=== PATIENT | male | born 1950 | race Caucasian/White ===

== ENCOUNTER 2020-02-20 10:23 | Outpatient (CLI) | payer BC, SELFPAY ==
[2020-02-20 11:12] LABS: Alanine Aminotransferase 35 U/L (4-50); Albumin Level 4.5 g/dL (3.5-5.1); Alkaline Phosphatase 113 U/L (38-126); Anion Gap 8 mmol/L (8-16); Aspartate Amino Transferase 37 U/L (17-59); Bilirubin,Total 0.9 mg/dL (0.2-1.3); Blood Urea Nitrogen 21 mg/dL (9-20); Calcium 9.4 mg/dL (8.4-10.2); Carbon Dioxide 29 mmol/L (22-30); Chloride 100 mmol/L (98-107); Cholesterol 184 mg/dL (0-200); Creatine Kinase 168 U/L (55-170); Estimated Glomerular Filt Rate > 60; Glucose 103 mg/dL (75-110); HDL Direct 36 mg/dL; Potassium 4.3 mmol/L (3.4-5.0); Sodium 137 mmol/L (137-145); Triglycerides 196 mg/dL (<150)
[2020-02-20 11:24] LABS: LDL Cholesterol Direct 120 mg/dL
== END 2020-02-20 10:24 | disposition home or self-care (01) ==
PROVIDERS: PCP Internal Medicine; Visit Provider Internal Medicine
DX: E78.5 Hyperlipidemia, unspecified (principal)
CPT/HCPCS: 36415; 80053; 80061; 82550

== ENCOUNTER 2020-03-03 22:39 | Emergency (ER) | payer BC, SELFPAY ==
--- NOTE | ~2020-03-03 | XR_ITS ---
EXAMINATION: XR chest 1V portable EXAM DATE: 03/03/2020 23:50 INDICATION: weakness, FALL, HX HTN. TECHNIQUE: Portable AP frontal chest x-ray was obtained. There is no prior study for comparison. FINDINGS: The lungs are clear. There are no pleural effusions. Cardiac silhouette is prominent but magnified on this AP technique. There is no pneumothorax suspected. The bones and soft tissues are unremarkable. IMPRESSION: No acute cardiopulmonary findings. Reviewed, dictated and finalized at location A. [employer] [employer]
[2020-03-03 22:41] VITALS: BP 138/95; PULSE 108; RESP 15; TEMP 36.5; O2SAT 93
--- NOTE | 2020-03-03 22:55 | ECG_ITS ---
Measurements Intervals [place] Rate: 108 P: 46 KS: 183 QRS: 20 QRSD: 119 T: 0 QT: 332 QTc: 445 Interpretive Statements SINUS TACHYCARDIA POSSIBLE LEFT ATRIAL ENLARGEMENT LOW QRS VOLTAGE IN PRECORDIAL LEADS INCOMPLETE RIGHT BUNDLE BRANCH BLOCK BORDERLINE T WAVE ABNORMALITY- INFERIOR LEADS ABNORMAL ECG Electronically Signed On 03-04-2020 7:18:49 RECLAIMER by Rob Jones D.O.
[2020-03-03 22:59] VITALS: BP 137/75; PULSE 103
[2020-03-03 23:13] VITALS: BP 123/85; PULSE 106
[2020-03-03 23:16] VITALS: BP 140/89; PULSE 112
[2020-03-03] MEDS: SODIUM CHLORIDE 0.9% IV 1,000 ML 999 ML IV CONT (23:21)
--- NOTE | 2020-03-03 23:22 | PC.NURSE ---
pt states he isnt able to urinate at this time, refused straight cath. IV fluids started on pt at this time. urinal placed at bedside. instructed to use call light to let rn know hes giving urine sample.
[2020-03-03 23:27] LABS: Basophils Percent Auto 0.3 % (0.2-1.2); Eosinophils Percent Auto 0.1 % (0-4.4); Hematocrit 44.4 % (42.0-52.0); Hemoglobin 15.2 g/dL (14.0-18.0); Immature Granulocyte Absolute 0.06 K/mm3 (0.00-0.031); Immature Granulocyte Percent A 0.4 % (0-0.5); Lymphocytes Absolute Auto 0.66 K/mm3 (0.9-3.2); Lymphocytes Percent Auto 4.2 % (18.3-44.2); Mean Corpuscular HGB Conc 34.2 g/dl (32-36); Mean Corpuscular Hemoglobin 30.4 pg (26-34); Mean Corpuscular Volume 88.8 fl (80-100); Mean Platelet Volume 9.4 fl (7.4-10.4); Monocytes Absolute Auto 0.8 K/mm3 (0.1-0.6); Neutrophils Absolute Auto 14.3 K/mm3 (1.3-6.7); Platelet Count Result 142 k/mm3 (150-375); Red Cell Distribution Width 13.2 % (11.5-14.5); White Blood Count 15.9 K/mm3 (4.5-10.0)
[2020-03-03 23:41] LABS: Alanine Aminotransferase 22 U/L (4-50); Albumin Level 4.1 g/dL (3.5-5.1); Alkaline Phosphatase 84 U/L (38-126); Anion Gap 8 mmol/L (8-16); Aspartate Amino Transferase 29 U/L (17-59); Bilirubin,Total 0.7 mg/dL (0.2-1.3); Blood Urea Nitrogen 23 mg/dL (9-20); Carbon Dioxide 26 mmol/L (22-30); Chloride 97 mmol/L (98-107); Estimated Glomerular Filt Rate 55; Glucose 147 mg/dL (75-110); Magnesium 1.9 mg/dL (1.6-2.3); Potassium 3.6 mmol/L (3.4-5.0); Sodium 131 mmol/L (137-145)
[2020-03-03 23:42] LABS: Lactic Acid Reflex 1.4 mmol/L (0.7-2.1)
[2020-03-03 23:52] LABS: Troponin I 0.014 ng/mL (0.000-0.034)
[2020-03-04 00:30] VITALS: BP 142/99; PULSE 98; RESP 18; O2SAT 97
[2020-03-04 00:47] LABS: Add Urine Microscopic? YES; Appearance Urine Clear (Clear); Bacteria Urine Trace /hpf; Bilirubin Urine Negative (Negative); Blood Urine 1+ (Negative); Color Urine Yellow (Yellow); Glucose Urine UA Negative (Negative); Ketones Urine Negative (Negative); Leukocyte Esterase Ur Negative LEU/UL (Negative); Mucus Urine Rare /lpf; Nitrate Urine Negative (Negative); Protein Urine 1+ mg/dL (Negative); RBC Urine 0-2 /hpf (0-2); Specific Grav Ur 1.018 (1.001-1.035); Urobilinogen Urine Negative mg/dL (<2.0); WBC Urine 0-3 /hpf
--- NOTE | 2020-03-04 01:03 | ED.GENADULT ---
HPI - General Adult General Chief complaint: Altered Mental Status Stated complaint: altered post fall Time Seen by Provider: 03/03/20 22:54 History of Present Illness HPI narrative: Patient is a 69-year-old gentleman who presents the emergency department with chief complaint of fall and altered mental status. Per the patient's the patient fell at home and then was somewhat confused. She had noticed that he has been running a fever all day the low 100s the noticed that his eyes can ever glassy and he was initially confused. The patient subsequently is feeling much better and actually is back to his baseline neurological status. The patient reports he has not had a cough does report to a fever of approximately 101. Patient denies chest pain denies vomiting denies diarrhea. Patient's is concerned that he may have had exposure to COVID-19. Related Data Allergies Allergy/AdvReac Type Severity Reaction Status Date / Time indomethacin Allergy Unknown Verified 09/14/12 08:59 Review of Systems Review of Systems: Narrative: CONSTITUTIONAL: Denies fever, chills, or sweats. EYES: Denies visual changes, redness, or discharge. ENT: Denies rhinorrhea, congestion, sore throat, or otalgia. CARDIOVASCULAR: Denies chest pain, palpitations, or edema. RESPIRATORY: Denies cough or dyspnea. GASTROINTESTINAL: Denies abdominal pain, nausea, vomiting, or diarrhea. GENITOURINARY: Denies dysuria or hematuria. SKIN: Denies rash or itching. MUSCULOSKELETAL: Denies back pain, joint pain, or myalgia. NEUROLOGIC: Denies headache, numbness, or weakness. PSYCHIATRIC: Denies anxiety or depression. A 10 system review of systems was completed on the patient and is negative except for what is stated in the HPI. Nursing and ancillary documentation was reviewed. [facility] Social History Social History Smoking status: Never smoker Second hand tobacco smoke exposure: No Alcohol intake: never Comments Past medical history significant for hypertension and diverticulitis Exam Narrative: Exam Narrative: GENERAL: Well-appearing, well-nourished, and in no acute distress. HEAD: Normocephalic, there is a small abrasion of the forehead. EYES: PERRLA and EOMI. ENT: Nares clear, no rhinorrhea or epistaxis. Mucous membranes moist. NECK: Supple. CHEST: Clear to auscultation. No respiratory distress. HEART: Regular rate and rhythm. No murmur heard. Normal peripheral pulses. ABDOMEN: Soft, nontender, nondistended, normal active bowel sounds. EXTREMITIES: Normal range of motion. No edema. SKIN: Warm, dry, no rash. NEURO: No focal deficits. Alert and oriented x3. PSYCH: Normal mood and affect. Course Course Emergency Course: Patient has been awake alert GCS 15 since arriving the emergency department. The patient has been afebrile since arriving in our facility. Laboratory studies do show a mildly elevated white blood cell count chest x-ray showed no evidence of focal infiltrate. Vital Signs Vital signs: Vital Signs Temperature 36.5 C 03/03/20 22:41 Pulse Rate 108 H 03/03/20 22:41 Respiratory Rate 15 03/03/20 22:41 Blood Pressure 138/95 H 03/03/20 22:41 Pulse Oximetry 93 03/03/20 22:41 Temperature 36.5 C 03/03/20 22:41 Pulse Rate 98 03/04/20 00:30 Respiratory Rate 18 03/04/20 00:30 Blood Pressure 142/99 H 03/04/20 00:30 Pulse Oximetry 97 03/04/20 00:30 Medical Decision Making Vital Signs Vital Signs: Vital Signs Temperature 36.5 C 03/03/20 22:41 Pulse Rate 108 H 03/03/20 22:41 Respiratory Rate 15 03/03/20 22:41 Blood Pressure 138/95 H 03/03/20 22:41 Pulse Oximetry 93 03/03/20 22:41 Temperature 36.5 C 03/03/20 22:41 Pulse Rate 98 03/04/20 00:30 Respiratory Rate 18 03/04/20 00:30 Blood Pressure 142/99 H 03/04/20 00:30 Pulse Oximetry 97 03/04/20 00:30 Lab Data Result diagrams: 03/03/20 23:10 03/03
[2020-03-04 01:30] VITALS: BP 142/99; PULSE 102; RESP 19; O2SAT 94
[2020-03-04 20:45] LABS: SARS-CoV-2 RNA PCR Negative
== END 2020-03-04 01:35 | disposition home or self-care (01) ==
PROVIDERS: Emergency Provider Emergency Medicine; PCP Internal Medicine
DX: B34.9 Viral infection, unspecified (principal); Z20.828 Contact with and (suspected) exposure to other viral communicable diseases; I10 Essential (primary) hypertension; R00.0 Tachycardia, unspecified; R94.31 Abnormal electrocardiogram [ECG] [EKG]; I45.10 Unspecified right bundle-branch block
CPT/HCPCS: 36415; 71045; 80053; 81001; 83605; 83735; 84484; 85025; 87635; 93005; 96360; 99284; C9803; J7030; U0003